=== PATIENT | male | born 2000 ===

== ENCOUNTER 2024-05-05 20:47 | Emergency (ER) | payer SELFPAY ==
[2024-05-05 20:49] VITALS: BP 146/91; PULSE 120; RESP 16; TEMP 36.4; O2SAT 100; BMI 26.9
--- NOTE | 2024-05-05 21:43 | ED.RN ---
Pt informed this RN tht he does not need to be seen by an ER doctor per converting supervisor [facility] [employer]. [facility] called for drug and ETOH screen.
== END 2024-05-05 21:46 | disposition left against medical advice (07) ==
LOC: ED 22:06
DX: Z00.00 Encounter for general adult medical examination without abnormal findings (principal)